=== PATIENT | female | born 1995 | race Caucasian/White ===

== ENCOUNTER 2022-05-04 11:36 | Emergency (ER) | payer MEDICAID, OTHER ==
[~2022-05-04] VITALS: Ht 160 cm; Wt 68.0 kg
[2022-05-04] MEDS ORDERED: ACETAMINOPHEN 325 MG TABLET PO ONE (13:00)
[2022-05-04] MEDS ORDERED: ACETAMINOPHEN 325 MG TABLET ONE (13:01)
--- NOTE | 2022-05-04 15:24 | NUR ---
Patient is resting comfortably in bed with eyes closed, NAD noted.
[2022-05-04] MEDS ORDERED: IBUPROFEN 400 MG TABLET PO ONE (15:30)
[2022-05-04] MEDS ORDERED: DICL100G31 TP (15:44)
--- NOTE | 2022-05-04 15:48 | NUR ---
Patient discharged to home in stable condition. Written and verbal after care instructions given. Patient verbalizes understanding of instructions. Stressed follow up or return to ER for worsening s/s.
== END 2022-05-04 16:13 | disposition home or self-care (01) ==
LOC: ER 11:36
DX: S80.11XD Contusion of right lower leg, subsequent encounter (principal); Y04.8XXD Assault by other bodily force, subsequent encounter; Z59.01 Sheltered homelessness; M79.661 Pain in right lower leg
CPT/HCPCS: 73590; A4663